=== PATIENT | male | born 1980 | race African-American/Black ===

== ENCOUNTER 2017-04-29 01:48 | Emergency (ER) | payer MEDICAID, OTHER ==
[2017-04-29 01:54] VITALS: BP 124/64
== END 2017-04-29 02:35 | disposition left against medical advice (07) ==
LOC: ED 01:48
DX: R07.9 Chest pain, unspecified (principal); Z53.21 Procedure and treatment not carried out due to patient leaving prior to being seen by health care provider

== ENCOUNTER 2018-04-22 11:40 | Emergency (ER) | payer OTHER ==
[2018-04-22 11:59] VITALS: BP 134/80
--- NOTE | 2018-04-22 12:20 | UC ---
UC General HPI - HPI Summary HPI Summary: This patient is a 37-year-old male who presents to the urgent care with a chief complaint of having anal warts. The patient is be having the symptoms for the last 3 or 4 months. Patient reports that is uncomfortable itchy that he decided to come to the urgent care for further assessment. He has history of anal warts and he has tried multiple medications however he reports that the only treatment that he works for him he was cryotherapy. He denies any other symptom. - History of Current Complaint Chief Complaint: UCGU Stated Complaint: ABDOMINAL PAIN Time Seen by Provider: 04/22/18 12:06 Pain Intensity: 7 - Allergy/Home Medications Allergies/Adverse Reactions: Allergies Allergy/AdvReac Type Severity Reaction Status Date / Time No Known Allergies Allergy Verified 04/22/18 11:59 Home Medications: Home Medications NK [No Home Medications Reported] 04/22/18 [History Confirmed 04/22/18] PMH/Surg Hx/FS Hx/Imm Hx Previously Healthy: Yes - Surgical History Surgical History: None - Social History Lives: With Family Alcohol Use: Daily Substance Use Type: Cocaine Smoking Status (MU): Heavy Every Day Tobacco Smoker Review of Systems All Other Systems Reviewed And Are Negative: Yes Constitutional: Positive: Negative Skin: Positive: Other - Anal wartz Eyes: Positive: Negative ENT: Positive: Negative Respiratory: Positive: Negative Cardiovascular: Positive: Negative Gastrointestinal: Positive: Negative Genitourinary: Positive: Negative Motor: Positive: Negative Neurovascular: Positive: Negative Musculoskeletal: Positive: Negative Neurological: Positive: Negative Psychological: Positive: Negative Is Patient Immunocompromised?: No Physical Exam - Summary Physical Exam Summary: Vital signs: reviewed General: Patient is comfortable lying in stretcher with no signs of distress HEENT: within normal limits Lungs: CTA B/L CVS: S1 & S2 present. No murmurs appreciated. ABDOMEN: Soft, non-tender. No signs of distention. No rebound no guarding, and no masses palpated. Bowel sounds are normal. Rectum : positive wartz around the rectum. EXTREMITIES: FROM in all major joints, no edema, no cyanosis or clubbing. NEURO: Alert and oriented x 3. No acute neurological deficits. Speech is normal and follows commands. SKIN: Dry and warm Triage Information Reviewed: Yes Vital Signs: Initial Vital Signs Temp 98 F 04/22/18 11:56 Pulse 78 04/22/18 11:56 Resp 18 04/22/18 11:56 BP 134/80 04/22/18 11:56 Pulse Ox 100 04/22/18 11:56 Vital Signs Reviewed: Yes Course/Dx - Course Course Of Treatment: Patient with rectal reports will benefit over the dermatology consult. Especially with the patient with only try cryotherapy. Therefore the patient was given a referral for the pathology. The patient is hemodynamically stable alert and oriented 3. - Diagnoses Provider Diagnosis: Wart Discharge - Sign-Out/Discharge Documenting (check all that apply): Patient Departure All imaging exams completed and their final reports reviewed: No - Discharge Plan Condition: Stable Disposition: HOME Patient Education Materials: Cryotherapy Wart Removal (DC) Referrals: Barry Ashley MD [Medical Doctor] - No Primary Care Phys,NOPCP [Primary Care Provider] - Additional Instructions: Patient will would make the appointment with dermatology. - Billing Disposition and Condition Condition: STABLE Disposition: Home
--- NOTE | 2018-04-22 16:42 | UC ---
Course/Dx - Diagnoses Provider Diagnoses: Wart Discharge - Sign-Out/Discharge Documenting (check all that apply): Post-Discharge Follow Up All imaging exams completed and their final reports reviewed: No Studies - Discharge Plan Condition: Stable Disposition: HOME Patient Education Materials: Cryotherapy Wart Removal (DC) Referrals: Barry Ashley MD [Medical Doctor] - No Primary Care Phys,NOPCP [Primary Care Provider] - Additional Instructions: Patient will would make the appointment with dermatology. - Billing Disposition and Condition Condition: STABLE Disposition: Home
== END 2018-04-22 12:21 | disposition home or self-care (01) ==
LOC: UCEAST 11:40
DX: A63.0 Anogenital (venereal) warts (principal); F17.200 Nicotine dependence, unspecified, uncomplicated
CPT/HCPCS: 99211; G0463

== ENCOUNTER 2018-07-05 15:52 | Emergency (ER) | payer OTHER ==
[2018-07-05 16:13] VITALS: BP 110/75
--- NOTE | 2018-07-05 16:27 | UC ---
Skin Complaint HPI - HPI Summary HPI Summary: 37-year-old male Comes in with a chief complaint of right arm swelling at the antecubital. Patient noticed that the last 1 day. He is feeling slightly sick. With his vital signs he is tachycardic and he also has a fever of 101.5. Patient has been IV drug user but has been a long time he reports since he used IV drugs. - History of Current Complaint Chief Complaint: UCSkin Time Seen by Provider: 07/05/18 16:14 Stated Complaint: R ARM COMPLAINT Pain Intensity: 10 - Allergy/Home Medications Allergies/Adverse Reactions: Allergies Allergy/AdvReac Type Severity Reaction Status Date / Time No Known Allergies Allergy Verified 07/05/18 16:13 Home Medications: Home Medications Acetaminophen [Pain Reliever] 500 mg PO ONCE PRN 07/05/18 [History Confirmed 08/18] [facility] 1 tab PO ONCE PRN 07/05/18 [History] PMH/Surg Hx/FS Hx/Imm Hx Previously Healthy: Yes - Surgical History Surgical History: None - Social History Alcohol Use: Daily Substance Use Type: Cocaine Substance Use Comment - Amount & Last Used: 2 days ago, iv drug user hx Smoking Status (MU): Heavy Every Day Tobacco Smoker Amount Used/How Often: 1/2ppd Household Exposure Type: Cigarettes Review of Systems All Other Systems Reviewed And Are Negative: Yes Constitutional: Positive: Fever, Chills Skin: Positive: Other - SEE HPI Eyes: Positive: Negative ENT: Positive: Negative Respiratory: Positive: Negative Cardiovascular: Positive: Other - TACHYCARDIA. Negative: Chest Pain Gastrointestinal: Positive: Negative Motor: Positive: Negative Neurovascular: Positive: Negative Musculoskeletal: Positive: Negative Neurological: Positive: Negative Psychological: Positive: Negative Is Patient Immunocompromised?: No Physical Exam Triage Information Reviewed: Yes Appearance: Well-Nourished, Ill-Appearing - MILD, Pain Distress - MILD Vital Signs: Initial Vital Signs Temp 101.5 F 07/05/18 16:08 Pulse 115 07/05/18 16:08 Resp 18 07/05/18 16:08 BP 110/75 07/05/18 16:08 Pulse Ox 100 07/05/18 16:08 Vital Signs Reviewed: Yes Eye Exam: Normal Eyes: Positive: Conjunctiva Clear Neck: Positive: Supple Respiratory: Positive: No respiratory distress Cardiovascular: Positive: Tachycardia Musculoskeletal: Positive: Strength Intact, ROM Limited @ - RT ELBOW Neurological Exam: Normal Neurological: Positive: Alert Psychological Exam: Normal Psychological: Positive: Age Appropriate Behavior Skin: Positive: Other - Swelling in the right antecubital. It's erythematous and tender to palpation. There is streaking proximally. Normal radial pulse distally normal capillary refill distally. Course/Dx - Course Course Of Treatment: Given that the patient is tachycardic and has a fever of 101.5 most appropriate to have IV antibiotics and drainage of the abscess and potentially admission to the hospital. I discussed this with the patient and the patient's going to the hospital by ambulance. - Diagnoses Provider Diagnosis: Abscess of right arm, Sepsis Discharge - Sign-Out/Discharge Documenting (check all that apply): Patient Departure All imaging exams completed and their final reports reviewed: No Studies - Discharge Plan Condition: Stable Disposition: TRANS HIGHER LVL OF CARE FAC Referrals: [facility] [Outside] [facility] [place] [place] [facility] [Outside] - Billing Disposition and Condition Condition: STABLE Disposition: Trans Higher Lvl of Care Fac
[2018-07-05] MEDS ORDERED: NS 0.9% 1000 ML** 1,000 ML IV ONE (16:39)
== END 2018-07-05 16:47 | disposition home or self-care (01) ==
LOC: UCEAST 15:52
DX: L02.413 Cutaneous abscess of right upper limb (principal); A41.9 Sepsis, unspecified organism; R00.0 Tachycardia, unspecified; F17.210 Nicotine dependence, cigarettes, uncomplicated
CPT/HCPCS: 96361; 99213; G0463

== ENCOUNTER 2018-07-05 17:06 | Emergency (ER) | payer OTHER ==
[2018-07-05] MEDS ORDERED: Piperacillin/Tazobac ADVAN(*) 3.375 GM in NS 0.9% 100 ML* 100 ML IVPB ONE (17:17)
[2018-07-05] MEDS ORDERED: NS 0.9% 1000 ML** 1,000 ML IV ONE (17:19)
--- NOTE | 2018-07-05 17:19 | ED ---
Skin Complaint - HPI Summary HPI Summary: Pt is a 37 y/o male who presents to the ED c/o abscess. He was sent here from the for possible admission. Yesterday morning he noticed an abscess to the inside of his right elbow. Pt report redness, swelling, and pain to the area. He currently rates his pain as an 8/10 in severity, and it is made worse with bending of his arm. Pt also has a fever of 101.5 degrees F. 1 week ago he injected cocaine into his right arm, but states he has not used drugs since then. - History of Current Complaint Time Seen by Provider: 07/05/18 17:11 Stated Complaint: ABSCESS ON RT ARM PER EMS Hx Obtained From: Patient Onset/Duration: Started Days Ago - yesterday, Still Present Timing: Constant Current Severity: Severe Pain Intensity: 8 Pain Scale Used: 0-10 Numeric Skin Location: Arm - R Character: Swelling, Pain, Redness Aggravating Symptom(s): Other: - bending arm Alleviating Symptom(s): Nothing Associated Signs & Symptoms: Fever Related History: Other: - injected cocaine into R arm - Allergy/Home Medications Allergies/Adverse Reactions: Allergies Allergy/AdvReac Type Severity Reaction Status Date / Time No Known Allergies Allergy Verified 07/05/18 17:11 PMH/Surg Hx/FS Hx/Imm Hx Endocrine/Hematology History: Denies: Hx Diabetes, Hx Thyroid Disease Cardiovascular History: Denies: Hx Hypertension Respiratory History: Denies: Hx Asthma GI History: Denies: Hx Ulcer History: Denies: Hx Renal Disease Psychiatric History: Reports: Hx Depression, Hx Substance Abuse - cocaine - Surgical History Surgery Procedure, Year, and Place: None. Infectious Disease History: No Infectious Disease History: Denies: Hx Hepatitis, Hx Human Immunodeficiency Virus (HIV), Traveled Outside the [place] in Last 30 Days - Family History Known Family History: Negative: Hypertension, Diabetes - Social History Alcohol Use: Daily Hx Substance Use: Yes Substance Use Type: Reports: Cocaine Substance Use Comment - Amount & Last Used: 2 days ago, iv drug user hx Hx Tobacco Use: Yes Smoking Status (MU): Heavy Every Day Tobacco Smoker Amount Used/How Often: 1/2ppd Review of Systems Positive: Fever Positive: Other - abscess - redness, swelling, pain All Other Systems Reviewed And Are Negative: Yes Physical Exam - Summary Physical Exam Summary: VITAL SIGNS: Reviewed. GENERAL: Patient is a well-developed and nourished MALE who is lying comfortable in the stretcher. Patient is not in any acute respiratory distress. HEAD AND FACE: No signs of trauma. No ecchymosis, hematomas or skull depressions. No sinus tenderness. EYES: PERRLA, EOMI x 2, No injected conjunctiva, no nystagmus. EARS: Hearing grossly intact. Ear canals and tympanic membranes are within normal limits. MOUTH: Oropharynx within normal limits. NECK: Supple, trachea is midline, no adenopathy, no JVD, no carotid bruit, no c- spine tenderness, neck with full ROM. CHEST: Symmetric, no tenderness at palpation LUNGS: Clear to auscultation bilaterally. No wheezing or crackles. CVS: Regular rate and rhythm, S1 and S2 present, no murmurs or gallops appreciated. ABDOMEN: Soft, non-tender. No signs of distention. No rebound no guarding, and no masses palpated. Bowel sounds are normal. EXTREMITIES: FROM in all major joints, no cyanosis or clubbing. Right arm with swelling, erythema, and tenderness extending to the antecubital fossa. NV intact distally. NEURO: Alert and oriented x 3. No acute neurological deficits. Speech is normal and follows commands. SKIN: Dry and warm. Triage Information Reviewed: Yes Vital Signs On Initial Exam: Initial Vitals Temp Pulse Resp BP Pulse Ox 100.2 F 92 18 100/72 100 07/05/18 17:12 07/05/18 17:12 07/05/18 17:12 07/05/18 17:12 07/05/18 17:12 Vital Signs Reviewed: Yes Procedures - Incision and Drainage Right Arm Site: Using sterile techniques, US guided for full visualization Anesthesia: Lidocaine - 3 cc 1% Instrument(s): Scalpel - 11 blade Packing: Gauze - Iodoform, copious amount of purulent discharge Diagnostics - Vital Signs Vital Signs Temp Pulse Resp BP Pulse Ox 07/05/18 17:12 100.2 F 92 18 100/72 100 - Laboratory Result Diagrams: 07/05/18 17:52 07/05/18 17:52 Lab Statement: Any lab studies that have been ordered have been reviewed, and results considered in the medical decision making process. Re-Evaluation - Re-Evaluation First Eval Re-Evaluation Time: 18:00 Change: Improved Comment: Pt feels better after Morphine. Course/Dx - Course Assessment/Plan: Patient is a 37-year-old male who was sent from the urgent care for an abscess and cellulitis in the right upper extremity. The patient reports that about a week ago he shot cocaine in the right arm and now he developed this infection. Test results without any significant abnormality except for what was a count of 12.4, lactic acid is 2.8, CRP is 80. The abscess was I&D. The patient was given a dose of Zosyn. At this point the patient reports that he wants to go home and he will sign the AGAINST MEDICAL ADVICE. He reports that he needs to go. I extensively discussed with the patient the benefits and risk of leaving AMA. I also discussed the alternatives to leaving AMA, however, the patient still insist to leave the hospital AMA. The patient is clinically sober, free from distracting injury, appears to have intact insight and judgment and reason and in my opinion has the capacity to make decisions. Patient has full capacity and is cognitively intact. The patient presents with abscess and cellulitis, I have explained that I am concerned with cellulitis and abscess and may represent bacteremia, sepsis and . The patient verbalizes the understanding of my concerns. I have also explained the results of the labs and even though they are abnormal. The primary nurse and the charge nurse also strongly recommended that the patient should not leave AMA. Patient understands the risk of leaving AMA, which includes but is not restricted to . Patient signed the AMA form. Patient was also advised to return to ED if he changes his mind or if the symptoms worsen or other symptoms appear. Patient understands and agrees. Again , I discussed all the findings and test results with the patient. Patient was instructed to return to the emergency room immediately if any of the symptoms return or worsens. Plan of care was discussed with the patient and understands and agrees. All questions were answered at patient satisfaction. There were no further complaints or concerns. Patient signed AMA and he was discharged AMA. Patient was given a prescription for Keflex and Bactrim. - Diagnoses Provider Diagnoses: Abscess, Cellulitis Discharge - Sign-Out/Discharge Documenting (check all that apply): Patient Departure - AMA Patient Received Moderate/Deep Sedation with Procedure: No - Discharge Plan Condition: Stable Disposition: AGAINST MEDICAL ADVICE Prescriptions: Cephalexin CAP* [Keflex CAP*] 500 mg PO QID #40 cap Sulfamethox/Trimethoprim DS* [Bactrim DS 800/160 TAB*] 1 tab PO BID #20 tab Referrals: No Primary Care Phys,NOPCP [Primary Care Provider] - - Billing Disposition and Condition Condition: STABLE Disposition: Against Medical Advice - Attestation Statements Document Initiated by Scribe: Yes Documenting Scribe: Kiley Betts Provider For Whom Scribe is Documenting (Include Credential): Allan Suggs MD Scribe Attestation: Kiley Tovar, scribed for Allan Suggs MD on 07/05/18 at 1850. Scribe Documentation Reviewed: Yes Provider Attestation: The documentation as recorded by the Kiley banuelos accurately reflects the service I personally performed and the decisions made by Allan castellanos MD Status of Scribe Document: Viewed
[2018-07-05] MEDS ORDERED: Lidocaine 1%* 5 ML VIAL ONE (17:36)
[2018-07-05] MEDS ORDERED: Bacitracin OINTMENT* 0.5% 0.5 oz TUBE ONE (17:38)
[2018-07-05] MEDS ORDERED: Morphine 4 MG/ML VIAL (1 ml) 4 MG/ML VIAL ONE (17:52)
[2018-07-05] MEDS ORDERED: Morphine 4 MG/ML VIAL (1 ml) 4 MG/ML VIAL IV ONE (17:53)
[2018-07-05] MEDS ORDERED: Ondansetron INJ* 2 MG/ML VIAL ONE (17:59)
[2018-07-05 18:00] LABS: ABS Basophils 0 10^3/ul (0-0.2); ABS Eosinophils 0 10^3/ul (0-0.6); ABS Lymphocytes 1.4 10^3/ul (1.0-4.8); ABS Monocytes 0.9 10^3/ul (0-0.8); ABS Neutrophils 10.1 10^3/ul (1.5-7.7); ABS Nucleated RBC 0 10^3/ul; Eosinophil % 0.1 %; Hematocrit 43 % (36-46); Hemoglobin 14.5 g/dL (14.0-18.0); Lymphocyte % 11.3 %; Mean Corpuscular HGB Conc 34 g/dL (31-36); Mean Corpuscular Hemoglobin 31 pg (27-31); Mean Corpuscular Volume 93 fL (80-94); Mean Platelet Volume 8.9 fL (7.4-10.4); Nucleated Red Blood Cells % 0.1; Platelet Count 234 10^3/uL (150-450); Red Blood Count 4.64 10^6 /uL (4.18-5.48); Red Cell Distribution Width 13 % (10.5-15); White Blood Count 12.4 10^3/uL (3.5-10.8)
[2018-07-05] MEDS ORDERED: Ondansetron INJ* 2 MG/ML VIAL IV ONE (18:01)
[2018-07-05 18:15] LABS: Activated Partial Thrombo Time 29.5 seconds (26.0-36.3); INR 1.22 (0.77-1.02)
[2018-07-05 18:20] VITALS: BP 109/77
[2018-07-05 18:20] LABS: Albumin 3.7 g/dL (3.2-5.2); Albumin/Globulin Ratio 1.2 (1-3); BUN/Creatinine Ratio 13.3 (8-20); C Reactive Protein 80.22 mg/L (<8.01); Calcium 8.8 mg/dL (8.6-10.3); EGFR African American 126.1 (>60); EGFR Non-African American 104.3 (>60); Potassium 3.9 mmol/L (3.5-5.0); Total Bilirubin 0.5 mg/dL (0.2-1.0); Total Protein 6.7 g/dL (6.4-8.9)
--- NOTE | 2018-07-05 19:49 | PN ---
Progress Note - Progress Note Date of Service: 07/05/18 Note: Microbiology results from wound culture taken from abscess on this patient seen today by Dr. Suggs came back MRSA positive by PCR. Chart was checked and patient was given prescription for Keflex and Bactrim which will cover MRSA.
== END 2018-07-05 18:15 | disposition left against medical advice (07) ==
LOC: ED 17:06
DX: L02.413 Cutaneous abscess of right upper limb (principal); L03.113 Cellulitis of right upper limb; F17.210 Nicotine dependence, cigarettes, uncomplicated; F14.90 Cocaine use, unspecified, uncomplicated
CPT/HCPCS: 10060; 36415; 80053; 83605; 84484; 85025; 85610; 85730; 86140; 87040; 87070; 87077; 87186; 87205; 87640; 87641; 96361; 96365; 96375; 96376; 99283; A9270-GY; J2270; J2405; J2543

== ENCOUNTER 2018-08-13 01:05 | Emergency (ER) | payer OTHER ==
[2018-08-13] MEDS ORDERED: Clindamycin 600 MG/D5W BAG(*) 600 MG/50 ML BAG IV ONE (01:43)
[2018-08-13] MEDS ORDERED: NS 0.9% 1000 ML** 1,000 ML IV ONE (01:44)
[2018-08-13] MEDS ORDERED: Ketorolac INJ* 30 MG/ML 1 ML VIAL IV PUSH ONE (01:44)
[2018-08-13 02:02] LABS: ABS Lymphocytes 1.9 10^3/ul (1.0-4.8); ABS Monocytes 1.3 10^3/ul (0-0.8); ABS Neutrophils 13.3 10^3/ul (1.5-7.7); Eosinophil % 0.1 %; Hematocrit 46 % (42-52); Hemoglobin 15.3 g/dL (14.0-18.0); Lymphocyte % 11.3 %; Mean Corpuscular HGB Conc 34 g/dL (31-36); Mean Corpuscular Hemoglobin 31 pg (27-31); Mean Corpuscular Volume 93 fL (80-94); Mean Platelet Volume 9.3 fL (7.4-10.4); Platelet Count 188 10^3/uL (150-450); Red Blood Count 4.89 10^6 /uL (4.18-5.48); Red Cell Distribution Width 14 % (10.5-15); White Blood Count 16.5 10^3/uL (3.5-10.8)
[2018-08-13 02:16] LABS: Albumin 4.1 g/dL (3.2-5.2); Albumin/Globulin Ratio 1.4 (1-3); BUN/Creatinine Ratio 7.2 (8-20); EGFR African American 126.1 (>60); EGFR Non-African American 104.3 (>60); Globulin 2.9 g/dL (2-4); Potassium 3.9 mmol/L (3.5-5.0); Total Bilirubin 2.5 mg/dL (0.2-1.0)
--- NOTE | 2018-08-13 02:29 | ED ---
Upper Extremity Pain - HPI Summary HPI Summary: Pt is a 37 y/o male who presents to the ED c/o RUE pain. A few days ago he began to have an infection in the inside of his right elbow. Pt c/o redness and pain to the area, rated a 10/10 in severity. He also now has a fever. He injects cocaine, and missed the needle. As per medical records he was here on 07/05/18 for an abscess in the same area due to injecting cocaine. Pt denies any opiate use. - History of Current Complaint Chief Complaint: EDExtremityUpper Stated Complaint: RT ARM INFECTION NEEDS TO BE DRAINED PER PT Time Seen by Provider: 08/13/18 02:08 Hx Obtained From: Patient Mechanism Of Injury: Other - missed needle injection Onset/Duration: Started Days Ago - 2-3, Still Present Timing: Constant Severity Currently: Severe - 10/10 Pain Location: Elbow - inner right Associated Signs & Symptoms: Positive: Redness, Fever Related History: Similar Episode/Dx As - 07/05/18 - Allergies/Home Medications Allergies/Adverse Reactions: Allergies Allergy/AdvReac Type Severity Reaction Status Date / Time No Known Allergies Allergy Verified 08/13/18 01:19 Home Medications: Home Medications NK [No Home Medications Reported] 08/13/18 [History Confirmed 08/13/18] PMH/Surg Hx/FS Hx/Imm Hx Endocrine/Hematology History: Denies: Hx Diabetes, Hx Thyroid Disease Cardiovascular History: Denies: Hx Hypertension Respiratory History: Denies: Hx Asthma GI History: Denies: Hx Ulcer History: Denies: Hx Renal Disease Psychiatric History: Reports: Hx Depression, Hx Substance Abuse - cocaine - Surgical History Surgery Procedure, Year, and Place: None. Infectious Disease History: No Infectious Disease History: Denies: Hx Hepatitis, Hx Human Immunodeficiency Virus (HIV), Traveled Outside the [place] in Last 30 Days - Family History Known Family History: Negative: Hypertension, Diabetes - Social History Alcohol Use: Daily Hx Substance Use: Yes Substance Use Type: Reports: Cocaine Substance Use Comment - Amount & Last Used: 2 days ago, iv drug user hx Hx Tobacco Use: Yes Smoking Status (MU): Heavy Every Day Tobacco Smoker Amount Used/How Often: 1/2ppd Review of Systems Positive: Fever Positive: Myalgia - RUE pain Positive: Other - RUE redness All Other Systems Reviewed And Are Negative: Yes Physical Exam - Summary Physical Exam Summary: Appearance: well appearing, no pain distress Skin: hot, dry, reflects adequate perfusion, erythema and induration from right mid-bicep through the distal forearm, large fluctuant area in right AC area Head/face: normal Eyes: EOMI, DAKOTAH ENT: mucous membranes moist Neck: supple, non-tender Respiratory: CTA, breath sounds present Cardiovascular: RRR, pulses symmetrical Abdomen: non-tender, soft Bowel Sounds: present Musculoskeletal: normal, strength/ROM intact Neuro: normal, sensory motor intact, A&Ox3 Triage Information Reviewed: Yes Vital Signs On Initial Exam: Initial Vitals Temp Pulse Resp BP Pulse Ox 101.9 F 102 18 130/79 98 08/13/18 01:16 08/13/18 01:16 08/13/18 01:16 08/13/18 01:16 08/13/18 01:16 Vital Signs Reviewed: Yes Procedures - Incision and Drainage Right Elbow Site: right AC area - 5 cm in diameter Anesthesia: Lidocaine - 5 cc 1% Instrument(s): Scalpel - 11 blade, large amount of puss Packing: Gauze Diagnostics - Vital Signs Vital Signs Temp Pulse Resp BP Pulse Ox 08/13/18 01:16 101.9 F 102 18 130/79 98 - Laboratory Lab Results: Lab Results 08/13/18 08/13/18 08/13/18 Range/Units 01:47 01:47 01:47 WBC 16.5 H (3.5-10.8) 10^3/uL RBC 4.89 (4.18-5.48) 10^6 /uL Hgb 15.3 (14.0-18.0) g/dL Hct 46 (42-52) % MCV 93 (80-94) fL MCH 31 (27-31) pg MCHC 34 (31-36) g/dL RDW 14 (10.5-15) % Plt Count 188 (150-450) 10^3/uL MPV 9.3 (7.4-10.4) fL Neut % (Auto) 80.7 % Lymph % (Auto) 11.3 % [place] % (Auto) 7.7 % Eos % (Auto) 0.1 % Baso % (Auto) 0.2 % Absolute Neuts (auto) 13.3 H (1.5-7.7) 10^3/ul Absolute Lymphs (auto) 1.9 (1.0-4.8) 10^3/ul Absolute Monos (auto) 1.3 H (0-0.8) 10^3/ul Absolute Eos (auto) 0.0 (0-0.6) 10^3/ul Absolute Basos (auto) 0.0 (0-0.2) 10^3/ul Absolute Nucleated RBC 0.0 10^3/ul Nucleated RBC % 0.0 Sodium 130 L (135-145) mmol/L Potassium 3.9 (3.5-5.0) mmol/L Chloride 95 L (101-111) mmol/L Carbon Dioxide 28 (22-32) mmol/L Anion Gap 7 (2-11) mmol/L BUN 6 (6-24) mg/dL Creatinine 0.83 (0.67-1.17) mg/dL Est GFR ( Amer) 126.1 (>60) Est GFR (Non-Af Amer) 104.3 (>60) BUN/Creatinine Ratio 7.2 L (8-20) Glucose 124 H (70-100) mg/dL Lactic Acid 1.0 (0.5-2.0) mmol/L Calcium 9.0 (8.6-10.3) mg/dL Total Bilirubin 2.50 H (0.2-1.0) mg/dL AST 201 H (13-39) U/L ALT Pending Alkaline Phosphatase 152 H (34-104) U/L Total Protein 7.0 (6.4-8.9) g/dL Albumin 4.1 (3.2-5.2) g/dL Globulin 2.9 (2-4) g/dL Albumin/Globulin Ratio 1.4 (1-3) Result Diagrams: 08/13/18 01:47 08/13/18 01:47 Lab Statement: Any lab studies that have been ordered have been reviewed, and results considered in the medical decision making process. - CT Upper Extremity CT CT Interpretation Completed By: Radiologist Summary of CT Findings: Limited study due to beam hardening artifact. 1. A soft tissue defect in the anterior aspect of the elbow with underlying small subcutaneous hematoma measuring 0.9 cm, best seen on axial image 146 series 2. 2. Diffuse soft tissue swelling with subcutaneous infiltration in the lower arm and entire forearm, particular in the anterior aspect, most consistent with cellulitis. 3. Apparent focal fluid collection within distal biceps muscle, axial image 129 series 2, which may represent hematoma versus abscess. ED physician reviewed radiology report. 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 He states that he will return to the ED JERSON. Course/Dx - Course Course Of Treatment: Patient with a history of IV drug abuse presents with axillary abscess after missing wall injecting drug. He has fever and sepsis criteria. He is given IV fluids, IV antibiotics and an incision and drainage was performed on the area. A CT scan was up pain following that to evaluate for further abscess. This likely shows residual hematoma. The cellulitis was outlined and it was arranged for him to be admitted to the hospital. The patient has children at home being watched by his nephew and needs to leave AGAINST MEDICAL ADVICE to find a place for them. He swears he will return within the next one hour and has refused outpatient antibiotics given that he plans on returning. The hospitalist had been contacted and was about to evaluate the patient when he decided to leave against medical advise. Of note, his LFTs are now elevated, worrisome for acute hepatitis such as hepatitis C given his IV drug abuse. - Diagnoses Differential Diagnosis/HQI/PQRI: Positive: Other - MRSA, retained foreign body, abscess, cellulitis, hepatitis, HIV Provider Diagnoses: IV drug abuse, Abscess of right upper extremity, Acute hepatitis, Sepsis - Physician Notifications Discussed Care of Patient With: Elgin Conrad Time Discussed With Above Provider: 03:19 Instructed by Provider To: Admit As Inpatient - Critical Care Time Critical Care Time: 30-74 min - Critical care time is exclusive of separately billable procedures Discharge - Sign-Out/Discharge Documenting (check all that apply): Patient Departure - AMA Patient Received Moderate/Deep Sedation with Procedure: No - Discharge Plan Condition: Fair Disposition: AGAINST MEDICAL ADVICE Patient Education Materials: Hepatitis C (ED), Abscess (ED) Referrals: No Primary Care Phys,NOPCP [Primary Care Provider] - Additional Instructions: Return immediately to the ER for IV therapy as discussed. - Billing Disposition and Condition Condition: FAIR Disposition: Against Medical Advice - Attestation Statements Document Initiated by Scribe: Yes Documenting Scribe: Kiley Betts Provider For Whom Scribe is Documenting (Include Credential): Zia Johnson MD Scribe Attestation: IKiley, scribed for Zia Johnson MD on 08/13/18 at 0625. Scribe Documentation Reviewed: Yes Provider Attestation: The documentation as recorded by the rubénibeKiley accurately reflects the service I personally performed and the decisions made by me, Zia Johnson MD Status of Scribe Document: Viewed
[2018-08-13] MEDS ORDERED: Morphine 4 MG/ML VIAL (1 ml) 4 MG/ML VIAL IV ONE (02:32)
[2018-08-13 02:37] VITALS: BP 133/73
[2018-08-13] MEDS ORDERED: Iohexol 300* (CONTRAST) 10 ML SDV IV ONE (02:51)
[2018-08-13] MEDS ORDERED: Clindamycin 600 MG IVPREMIX(* 600 MG/50 ML SDV IV ONE (03:00)
[2018-08-13] MEDS ORDERED: Vancomycin(*) 1,750 MG in NS 0.9% 250 ML* 250 ML IVPB ONE (03:22)
[2018-08-13 03:27] LABS: INR 1.47 (0.82-1.09)
[2018-08-13 03:36] LABS: C Reactive Protein 118.72 mg/L (<8.01)
[2018-08-13 11:14] LABS: Hepatitis C Antibody Nonreactive (Nonreactive)
== END 2018-08-13 03:40 | disposition left against medical advice (07) ==
LOC: ED 01:05
DX: L02.413 Cutaneous abscess of right upper limb (principal); F19.10 Other psychoactive substance abuse, uncomplicated; B17.9 Acute viral hepatitis, unspecified; A41.9 Sepsis, unspecified organism; F17.210 Nicotine dependence, cigarettes, uncomplicated
CPT/HCPCS: 10060; 36415; 80053; 83605; 85025; 85610; 86140; 86803; 87040; 87070; 87077; 87186; 87205; 87640; 87641; 96361; 96365; 96375; 99283; J1885; J2270; J3370; Q9967

== ENCOUNTER 2018-08-13 06:29 | Inpatient (IN) | payer OTHER ==
[2018-08-13] MEDS ORDERED: NS 0.9% 1000 ML** 1,000 ML IV ONE (06:45)
[2018-08-13] MEDS ORDERED: Acetaminophen TAB* 325 MG PO ONE (06:46)
--- NOTE | 2018-08-13 06:48 | PN ---
Progress Note - Progress Note Date of Service: 08/13/18 Note: I supervised the care of the physician assistant offset press operator and I performed a history and physical on this patient. History: The patient has returned for inpatient IV antibiotics for right upper extremity abscess associated with IV drug use. He is also known to have acute hepatitis not currently worked up. Physical exam: Patient remains tachycardic and temperature is down somewhat. He is in no distress. His packing is in place in the right antecubital area and the cellulitic area remains within the bounds of the marked area that I did earlier. Plan: Laboratories for hepatitis, admit to the hospitalist for abscess.
[2018-08-13 08:20] LABS: Rapid HIV 1 Nonreactive (Nonreactive)
[2018-08-13] MEDS ORDERED: Acetaminophen TAB* 325 MG PO PRN (08:29)
[2018-08-13] MEDS ORDERED: Ibuprofen TAB* 600 MG PO PRN (08:29)
[2018-08-13] MEDS ORDERED: PROCHLORPERAZINE INJ 5 MG/ML 2 ML VIAL IV PRN (08:29)
[2018-08-13] MEDS ORDERED: Vancomycin(*) 1,500 MG in NS 0.9% 250 ML* 250 ML IVPB ONE ×2 (08:30→08:31)
[2018-08-13] MEDS ORDERED: cloNIDine TAB* 0.1 MG PO PRN (08:34)
[2018-08-13] MEDS ORDERED: Vancomycin per Pharmacy* NOTE FOLLOW UP SCH (09:00)
--- NOTE | 2018-08-13 09:27 | ED ---
Skin Complaint - HPI Summary HPI Summary: Patient returns with R forearm abscess. 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 He returns now and is willing to stay and be admitted. At this point he requires IV antibiotics for right upper extremity abscess associated with IV drug use. He currently also has active hepatitis, however this remains not worked up at this point. Packing is in place to the right antecubital area and the cellulitis remains within the bounds of the marked area that Dr. Johnson performed earlier prior to leaving AMA. He continues to deny any fevers, sweats, chills. He states he feels otherwise well. He has had abscesses in these areas in the past. - History of Current Complaint Chief Complaint: EDRashSkinAbscess Time Seen by Provider: 08/13/18 06:31 Stated Complaint: "R ARM INFECTION" PER PT Hx Obtained From: Patient Onset/Duration: Started Hours Ago, Started Days Ago Skin Exposure Onset/Duration: Hours Ago, Days Ago Timing: Constant Onset Severity: Moderate Current Severity: Moderate Pain Intensity: 0 Pain Scale Used: 0-10 Numeric Skin Location: Discrete - right antecubital packing in place/abscess Aggravating Symptom(s): Nothing Alleviating Symptom(s): Nothing Associated Signs & Symptoms: Negative - Allergy/Home Medications Allergies/Adverse Reactions: Allergies Allergy/AdvReac Type Severity Reaction Status Date / Time No Known Allergies Allergy Verified 08/13/18 01:19 PMH/Surg Hx/FS Hx/Imm Hx Previously Healthy: Yes Endocrine/Hematology History: Denies: Hx Diabetes, Hx Thyroid Disease Cardiovascular History: Denies: Hx Hypertension Respiratory History: Denies: Hx Asthma GI History: Denies: Hx Ulcer History: Denies: Hx Renal Disease Psychiatric History: Reports: Hx Depression, Hx Substance Abuse - cocaine - Surgical History Surgery Procedure, Year, and Place: None. - Immunization History Date of Tetanus Vaccine: unk Date of Influenza Vaccine: fall 2017 Hx Pertussis Vaccination: No Immunizations Up to Date: Yes Infectious Disease History: No Infectious Disease History: Denies: Hx Hepatitis, Hx Human Immunodeficiency Virus (HIV), Traveled Outside the [place] in Last 30 Days - Family History Known Family History: Negative: Hypertension, Diabetes - Social History Occupation: Unemployed Lives: Alone Alcohol Use: Daily Hx Substance Use: Yes Substance Use Type: Reports: Cocaine, Heroin Substance Use Comment - Amount & Last Used: 2 days ago, iv drug user hx Hx Tobacco Use: Yes Smoking Status (MU): Heavy Every Day Tobacco Smoker Amount Used/How Often: 1/2ppd Review of Systems Constitutional: Negative Negative: Fever, Fatigue, Skin Diaphoresis Negative: Palpitations, Chest Pain Negative: Shortness Of Breath, Cough Negative: Arthralgia, Myalgia Positive: Other - right antecubital packing in place/abscess Neurological: Negative All Other Systems Reviewed And Are Negative: Yes Physical Exam Triage Information Reviewed: Yes Vital Signs On Initial Exam: Initial Vitals Temp Pulse Resp BP Pulse Ox 100.0 F 114 16 110/80 93 08/13/18 06:31 08/13/18 06:31 08/13/18 06:31 08/13/18 06:31 08/13/18 06:31 Vital Signs Reviewed: Yes Appearance: Positive: Well-Appearing, Well-Nourished Skin: Positive: Skin Color Reflects Adequate Perfusion, Other - right antecubital packing in place/abscess with erythematous area -marked Neck: Positive: Supple, No Lymphadenopathy Respiratory/Lung Sounds: Positive: Clear to Auscultation, Breath Sounds Present Cardiovascular: Positive: RRR, Pulses are Symmetrical in both Upper and Lower Extremities Musculoskeletal: Positive: Strength/ROM Intact, Pain @ - right antecubital fossa Neurological: Positive: Speech Normal Psychiatric: Positive: Affect/Mood Appropriate AVPU Assessment: Alert Diagnostics - Vital Signs Vital Signs Temp Pulse Resp BP Pulse Ox 08/13/18 07:16 114 97 08/13/18 07:15 106 105/72 95 08/13/18 06:31 100.0 F 114 16 110/80 93 - Laboratory Lab Results: Lab Results 08/13/18 Range/Units 07:17 HIV 1&2 Antibody Rapid Nonreactive (Nonreactive) Lab Statement: Any lab studies that have been ordered have been reviewed, and results considered in the medical decision making process. Course/Dx - Course Course Of Treatment: During course treatment, the patient is evaluated for right forearm abscess. This was packed earlier this morning. He returns now to be admitted for IV antibiotics. He remained afebrile, and denies any sweats or chills. Discussed case with Dr. Snider, hospitalist, who agrees to admit patient for further evaluation and workup. - Differential Diagnoses - Skin Complaint Differential Diagnoses: Abscess - Diagnoses Provider Diagnoses: Abscess - Physician Notifications Discussed Care Of Patient With: Jess Snider Instructed by Provider To: Admit As Inpatient Discharge - Sign-Out/Discharge Documenting (check all that apply): Patient Departure Patient Received Moderate/Deep Sedation with Procedure: No - Discharge Plan Condition: Fair Disposition: ADMITTED TO [facility] Referrals: No Primary Care Phys,NOPCP [Primary Care Provider] - - Billing Disposition and Condition Condition: FAIR Disposition: Admitted to [facility]
[2018-08-13 10:48] LABS: Hepatitis B Surface Antigen Nonreactive (Nonreactive)
--- NOTE | 2018-08-13 12:04 | HP ---
CC: Dr. Harman* HISTORY AND PHYSICAL: DATE OF ADMISSION: 08/13/18 TIME OF EVALUATION: 8 a.m. CONSULTING ORTHOPEDIST: Dr. Harman. CHIEF COMPLAINT: "My arm hurts." HISTORY OF PRESENT ILLNESS: Mr. Kitchen is a 37-year-old male with a past medical history of drug abuse, who presents to the emergency room with complaints of right arm pain. He was seen in the emergency room on 07/05/18 with complaints of right arm pain around the antecubital fossa with redness, swelling, pain, and an abscess to the area. He had injected cocaine into the area. He was diagnosed with sepsis in right arm abscess and at that time, he had white cell count of 12.4, lactic acid of 2.8, CRP of 80. He left the emergency room against medical advice. He received a prescription for Keflex and Bactrim that he is not sure if he took it or not. He had an intake appointment at [facility] on 08/04/18, but he did not present to the appointment. He states that the arm never got better and he came to the emergency room last night and was found to have an abscess that was I and D'd by Dr. Bacon in the emergency room. He once again left against medical advice. At that time, his reasoning was that he needed to arrange care for his stepchildren and he did return to the emergency room earlier this morning and he is agreeable with admission He states that he has been awake for the past 4 days and that he usually just snorts cocaine, injecting is something unusual for him. He states that he did snort cocaine before returning to the hospital. He thinks he had fevers at home, but has not measured it. He complains of right arm pain, progressive and developed edema, progressive pain and erythema. He denies nausea, vomiting, diarrhea, chest pain, palpitations, shortness of breath or other complaints. PAST MEDICAL HISTORY: 1. Tobacco abuse. 2. Drug abuse including IV cocaine use. MEDICATION LIST: None. ALLERGIES: No known drug allergy. FAMILY HISTORY: Reviewing the patient, he states that there are no significant disease in family members. SOCIAL HISTORY: The patient states that he drinks 3 to 4 times a week, 6 packs. He states he uses cocaine, usually he snorts, but has injected in the past and he also uses heroin. Last heroin use was a couple of days ago and last cocaine use was today after he left the hospital against medical advice. He also is a smoker, half a pack a day. Surrogate decision maker is his mother , Becky Kitchen, phone number is [phone]. REVIEW OF SYSTEMS: A 14-point review of systems was performed and all the pertinent negatives and positive findings are in the HPI. PHYSICAL EXAMINATION GENERAL: The patient is a young gentleman sitting up in the ED stretcher, in no acute distress. VITAL SIGNS: Temperature is 100.0, heart rate is 114, oxygen saturation is 97% on room air, respiratory rate is 16, blood pressure 105/72. HEENT: Pupils are equal. Moist mucous membranes. CHEST: Breath sounds bilaterally with no added sounds. CVS: Normal S1 and S2. Regular rate and rhythm. ABDOMEN: Soft, bowel sounds are present. EXTREMITIES: The patient has edema with erythema of the right antecubital fossa extending up to mid arm and down to mid forearm with some mild swelling on his right hand. This has been I and D'd in the emergency room and he has packing in place, but the lesions are still draining sanguinopurulent drainage. He has good pulses. Sensation is intact. Normal capillary refill. He has full range of motion of his right hand. NEUROLOGIC: He is alert and oriented x3. Able to move all 4 extremities. LABORATORY AND IMAGING DATA: The patient had a CBC that showed a WBC of 16.5, hemoglobin of 15.3, hematocrit of 46, platelets of 188 with 80% neutrophils. INR is 1.4. Chemistry showed a sodium of 130, potassium of 3.9, chloride was 95 , bicarb 29, BUN of 6, creatinine of 0.83, glucose of 124, lactic acid is 1, calcium of 9. LFTs showed a total bilirubin of 205. AST of 201, ALT of 1012, alk phos 152. CRP 118. HIV serology was negative. PCR of the drainage of his right arm was positive for MRSA. CT of the upper extremity with contrast showed a soft tissue defect in the anterior aspect of the elbow with underlying small subcutaneous hematoma measuring 0.9 cm. Diffuse soft tissue swelling with subcutaneous infiltration in the lower arm and higher forearm, particularly in the anterior aspect, most consistent with cellulitis. Apparent focal fluid collection within the distal biceps muscle, which may represent hematoma versus abscess. ASSESSMENT AND PLAN: Mr. Kitchen is a 37-year-old male with a past medical history of tobacco abuse, IV drug abuse, who presents to the emergency room with right arm abscess, status post I and D. 1. Sepsis. The patient meets sepsis criteria with tachycardia and leukocytosis. Granted, the patient did use cocaine before coming to the emergency room, so his tachycardia is probably driven by his cocaine use. His blood pressure is stable. His lactic acid is normal. His source of infection is his right arm abscess. 2. Right arm methicillin-resistant Staphylococcus aureus abscess. The PCR of his right arm drainage is already positive for methicillin-resistant Staphylococcus aureus as well as his culture from his prior drainage in July. He will be admitted for further management. He will be treated with vancomycin and an Orthopedic consult was requested with Dr. Harman as I believe he will need further drainage. He will receive pain management with acetaminophen, ibuprofen and Toradol. 3. Acute hepatitis. The patient has an ALT of 1000 and this is new. In July , his LFTs were normal. The patient states that he usually just snorts cocaine and using something IV is not his usual. I suspect he probably contracted hepatitis C. Serologies were sent and we will follow the results. 4. Drug abuse. The patient will receive clonidine as needed for cravings, and we planned to schedule an appointment for followup at [facility] on discharge. He also have a social professionals consult. 5. DVT prophylaxis. The patient has a score of 1 on DVT Prophylaxis Assessment Guide. He will have SCDs while in bed. 6. Code status is full. TIME SPENT: Approximately 60 minutes was spent with patient interview, medical records review, physical examination to complete this admission, more than half of this time was spent [id number] with the patient in coordination of care. [id number]/[facility] #: [id number] LAINE
[2018-08-13] MEDS: Ketorolac INJ* 30 MG/ML 1 ML VIAL IV PUSH PRN (12:25)
--- NOTE | 2018-08-13 13:51 | CONS ---
CONSULTATION REPORT: DATE OF CONSULT: 08/13/18 CHIEF COMPLAINT: Draining abscess of the right arm. HISTORY OF PRESENT ILLNESS: The patient is a 37-year-old male, who presented to the emergency room with a complaint of right upper extremity pain with associated redness and drainage of the area. He initially present earlier this morning, abscess was packed and he left AMA. While home, admits to drinking alcohol and snorting cocaine. He returned and is agreeable to be admitted. He confirms pain of the right upper extremity with redness and swelling. He denies any fever or chills. One month ago he was also seen for an abscess of this area, given antibiotics which he did not take. Patient reports a history of IV cocaine use, to me stating he has not inject in one year though giving a more recent history to other medical providers. He had a CT scan of the right arm this morning, which showed a soft tissue defect at the anterior elbow, as well as a fluid collection of 0.9 cm in this area along with diffuse soft tissue swelling of the entire forearm. He has not had surgery in the past, denies medical issues aside from ADHD. PAST MEDICAL HISTORY: ADHD and IV drug use. Newly diagnosed hepatitis, untreated. PAST SURGICAL HISTORY: None. ALLERGIES: No known drug allergies. FAMILY HISTORY: No adverse effects from anesthesia. SOCIAL HISTORY: The patient drinks alcohol. He snorts cocaine and rarely injects cocaine. To me, reports he is no longer using IV drugs, though this morning he did report that he has recently inject cocaine. REVIEW OF SYSTEMS: General: Denies any feelings of fever or chills. HEENT: Denies any head trauma or headache. Cardio: No irregular beats. No chest pain. Respiratory: No shortness of breath, no cough. Abdomen: No abdominal pain, nausea, vomiting, or diarrhea. : No dysuria. Musculoskeletal: Positive for right upper extremity swelling and pain. Neuro: Sensation is intact to all extremities. No numbness, no paresthesias. Skin: The patient reports redness and draining lesion at his right antecubital fossa. PHYSICAL EXAM: General: No acute distress, lying in the emergency room, appears somewhat sedated, but oriented, keeping an appropriate conversation. Temperature 100.0, pulse rate 87, oxygen saturation 100 on room air, blood pressure 118/66. HEENT: Normocephalic and atraumatic. Extraocular movements are intact. The patient appears to have a small degree of scleral icterus. Cardiovascular: Bilateral radial pulses 2+. Respiratory: Rate and effort of breathing within normal limits. Abdomen: Nondistended, nontender. Musculoskeletal: Right upper extremity, right antecubital fossa is with a pea- sized open lesion with purulent drainage. There is surrounding erythema that spans the entire forearm and up into mid biceps. He is indurated throughout the forearm and to mid biceps, though it remains compressible. This area is nontender. There is no fluctuance. Capillary refill is less than 2 seconds distally. Sensation intact to light touch distally. The patient has good range of motion at the elbow, wrist, and digits without pain. Contralateral upper extremity, the patient does have old scarred over track kelly in the antecubital fossa, though no sign of abscess. Neuro: Sensation intact to light touch throughout bilateral upper and lower extremities. DIAGNOSTIC STUDIES/LAB DATA: White blood cell count 16.5, INR 1.47, sodium 130 , potassium 3.9, creatinine 0.83, bili 2.5, AST 201, ALT 1012, alk phos 152, CRP is 118.72. Upper extremity CT scan: Anterior aspect of the elbow with fluid collection 0.9 cm, diffuse soft tissue swelling into the lower arm at the anterior aspect and fluid collection of the distal biceps also noted. ASSESSMENT: Cellulitis and abscess of the right antecubital fossa associated with IV drug abuse. PLAN: The patient will be NPO. CBC, BMP, INR already complete. He should be doing warm soapy water soaks [address] Harman will evaluate this patient in order to determine if he needs to be brought to the OR tonight or we continue nonoperative treatment and see if he gets any better. Addendum: I again saw patient with Dr Harman at 1800. Purulence is expressible. Patient may eat a regular diet and we will continue IV antibiotics, warm soapy soaks TID and I will evaluate daily. PETRA ASHER, YOUNG [id number]/[facility] #: [id number] [facility]
--- NOTE | 2018-08-13 14:40 | PN ---
Progress Note - Progress Note Date of Service: 08/13/18 Note: Packing was dislodged by patient Was asked by RN to repack right antecubital abscess Packed with 8 cm 1/4 iodoform dressing Loose gauze wrapped and tegaderm applied Small amount of drainage and bleeding from the area prior to packing patient had minimal pain with procedure
[2018-08-13 14:47] LABS: Hepatitis C Antibody Low Reactive (Nonreactive)
[2018-08-13] MEDS: NS 0.9% 1000 ML** 1,000 ML IV SCH (14:47)
--- NOTE | 2018-08-13 16:37 | CONS ---
CONSULTATION REPORT: DATE OF CONSULTATION: 08/13/18 REQUESTING PHYSICIAN: Dr. Mcmullen. CONSULTING SERVICE: Infectious Disease. REASON FOR CONSULT: Right arm abscess. IMPRESSION: 1. Right arm abscess due to methicillin-resistant Staphylococcus aureus, superficial component was drained in the ER yesterday growing staph aureus, PCR positive for MRSA. He has diffuse edema and erythema. I suspect there is deeper component to the abscess. He did have a CT yesterday, which showed a collection in the biceps muscle. 2. Acute hepatitis, asymptomatic. ALT of 1000, bilirubin 2.5, hepatitis C antibody was reactive. Probably acute hepatitis C as suggested by Dr Mcmullen. His HIV test was negative. Hepatitis B surface antigen nonreactive. 3. Injection drug use, in brief remission. RECOMMENDATIONS: 1. Continue vancomycin, goal trough 15 to 20. He is going to be seen by Orthopedics for possibility of incision and debridement. 2. He has a hepatitis C viral load pending, we can follow that as an outpatient. Follow LFTs here. HISTORY OF PRESENT ILLNESS: A 37-year-old man who has injected cocaine in his right antecubital fossa, couple of weeks ago, he has been seen in the ER couple of times and at urgent care; however, he was prescribed Bactrim as an outpatient , he had taken off and on. Seen in the ER yesterday with worsening pain and swelling on the elbow and antecubital fossa. He has been having fevers, chills , and sweats at home. He had an I and D done in the ER with some purulent material removed. The specimen is growing MRSA sensitive to Bactrim, vancomycin , and doxycycline. He left AMA yesterday. He came back this morning because of worsening pain and swelling. He was admitted and started on vancomycin. He is going to be seen by Orthopedics. He has pain in his proximal forearm and has decreased range of motion of the elbow, he thinks mostly due to swelling. He has no abdominal pain, nausea, vomiting, or anorexia, in fact he is hungry. PAST MEDICAL HISTORY: 1. Tobacco abuse. 2. IV cocaine abuse. MEDICATIONS: 1. Tylenol. 2. Clonidine. 3. Ibuprofen. 4. Prochlorperazine. 5. Vancomycin 1250 mg every 8 hours. ALLERGIES: No known drug allergies. FAMILY HISTORY: No recurrent infections or TB. SOCIAL HISTORY: Lives in [place], had used cocaine injection recently. REVIEW OF SYSTEMS: All negative except as noted above to a 14-point review. PHYSICAL EXAM: Vital Signs: Temperature 37, heart rate 100, respiratory rate 18, blood pressure 100/56, oxygen saturation 98% on room air. In general, he is awake, not in distress. Neurologic: He is oriented x3. Follows commands. Moves all his extremities. HEENT: There is no conjunctival hemorrhage. Oropharynx without lesions. Neck: Neck is supple without mass. Heart has regular rate and rhythm without murmurs, rubs, or gallops. Lungs are clear to auscultation bilaterally. Abdomen: Soft, nontender, and nondistended. There are bowel sounds present. Skin: There is no rash or splinter hemorrhage. Musculoskeletal: There is no spine tenderness to palpation. Right forearm, elbow, and upper arm have diffuse warmth, edema and erythema. No crepitus or fluctuance. DIAGNOSTIC STUDIES/LAB DATA: From 08/13/18, white blood cell count 16, hemoglobin 15, platelets 188,000. Glucose 124, ALT 1000, creatinine 0.8, CRP 118. Please see impression and recommendations outlined above, which I have discussed with Dr. Mcmullen. Thanks for asking me to see Mr. Kitchen in consultation. [id number]/[facility] #: [id number] [facility] HEALTH[facility]
[2018-08-13] MEDS: Vancomycin(*) 1,250 MG in NS 0.9% 250 ML* 250 ML IVPB SCH (17:30)
[2018-08-14] MEDS: Vancomycin(*) 1,250 MG in NS 0.9% 250 ML* 250 ML IVPB SCH ×3 (02:44→17:47)
[2018-08-14] MEDS: NS 0.9% 1000 ML** 1,000 ML IV SCH (02:45)
[2018-08-14] MEDS: Ketorolac INJ* 30 MG/ML 1 ML VIAL IV PUSH PRN ×2 (04:37→13:02)
[2018-08-14 06:59] LABS: ABS Lymphocytes 1.8 10^3/ul (1.0-4.8); ABS Monocytes 1.5 10^3/ul (0-0.8); ABS Neutrophils 12.2 10^3/ul (1.5-7.7); Eosinophil % 0.2 %; Hematocrit 40 % (42-52); Hemoglobin 13.2 g/dL (14.0-18.0); Lymphocyte % 11.3 %; Mean Corpuscular HGB Conc 34 g/dL (31-36); Mean Corpuscular Hemoglobin 31 pg (27-31); Mean Corpuscular Volume 94 fL (80-94); Mean Platelet Volume 9.3 fL (7.4-10.4); Platelet Count 161 10^3/uL (150-450); Red Blood Count 4.22 10^6 /uL (4.18-5.48); Red Cell Distribution Width 15 % (10.5-15); White Blood Count 15.6 10^3/uL (3.5-10.8)
[2018-08-14 07:18] LABS: BUN/Creatinine Ratio 9.9 (8-20); Calcium 8.4 mg/dL (8.6-10.3); EGFR African American 151.1 (>60); EGFR Non-African American 124.8 (>60); Potassium 4.1 mmol/L (3.5-5.0)
[2018-08-14 09:16] LABS: C Reactive Protein 172.57 mg/L (<8.01)
--- NOTE | 2018-08-14 10:03 | PN ---
Progress Note - Progress Note Date of Service: 08/14/18 SOAP: Subjective: CC: abscess HPI: 37 yo man with right arm abscess; had I&D in ER, draining purulent fluid, pain and swelling about the same. Fever overnight. Hungry, no diarrhea. Objective: Vital Signs Temp 36.3 C 08/14/18 08:46 Pulse 67 08/14/18 08:46 Resp 16 08/14/18 08:46 BP 123/70 08/14/18 08:46 Pulse Ox 100 08/14/18 08:46 Intake & Output 08/13/18 08/14/18 08/14/18 18:59 06:59 18:59 Intake Total 1250 0 Balance 1250 0 Weight 180 lb Intake: IV Fluids 1250 Oral 0 Gen:awake, no distress HEENT: no thrush Heart:RRR no murmur Lungs:CTA BL Abd:+BS NTND soft Skin: no rash MSK: R AC fossa incision purulent drainage; diffuse edema and tenderness no crepitus Laboratory Results - last 24 hr 08/13/18 08/13/18 08/13/18 07:17 07:17 08:37 WBC RBC Hgb Hct MCV MCH MCHC RDW Plt Count MPV Neut % (Auto) Lymph % (Auto) [place] % (Auto) Eos % (Auto) Baso % (Auto) Absolute Neuts (auto) Absolute Lymphs (auto) Absolute Monos (auto) Absolute Eos (auto) Absolute Basos (auto) Absolute Nucleated RBC Nucleated RBC % Sodium Potassium Chloride Carbon Dioxide Anion Gap BUN Creatinine Est GFR ( Amer) Est GFR (Non-Af Amer) BUN/Creatinine Ratio Glucose Calcium C-Reactive Protein Hep Bs Antigen Nonreactive Hepatitis C Antibody Low reactive A Hepatitis C Ab Index 1.0 HIV 1&2 Antibody Nonreactive 08/14/18 08/14/18 06:34 06:34 WBC 15.6 H RBC 4.22 Hgb 13.2 L Hct 40 L MCV 94 MCH 31 MCHC 34 RDW 15 Plt Count 161 MPV 9.3 Neut % (Auto) 78.6 Lymph % (Auto) 11.3 [place] % (Auto) 9.7 Eos % (Auto) 0.2 Baso % (Auto) 0.2 Absolute Neuts (auto) 12.2 H Absolute Lymphs (auto) 1.8 Absolute Monos (auto) 1.5 H Absolute Eos (auto) 0.0 Absolute Basos (auto) 0.0 Absolute Nucleated RBC 0.0 Nucleated RBC % 0.0 Sodium 139 D Potassium 4.1 Chloride 110 Carbon Dioxide 25 Anion Gap 4 BUN 7 Creatinine 0.71 Est GFR ( Amer) 151.1 Est GFR (Non-Af Amer) 124.8 BUN/Creatinine Ratio 9.9 Glucose 110 H Calcium 8.4 L C-Reactive Protein 172.57 H Hep Bs Antigen Hepatitis C Antibody Hepatitis C Ab Index HIV 1&2 Antibody Assessment: 1. MRSA Right cutaneous abscess and bicep abscess 2. Acute hepatitis likely due to acute HCV 3. IVDU in brief remission Plan: 1. continue vacncomycin goal trough 15-20, warm soaks 2. HCV VL pending
[2018-08-14 10:42] LABS: Erythrocyte Sed Rate 20 mm/Hr (0-14)
--- NOTE | 2018-08-14 10:51 | PN ---
Subjective Date of Service: 08/14/18 Interval History: Mr. Kitchen reports that he is feeling relatively well today. He continues to have pain in his right arm that is reasonably well controlled on his current pain medication regimen. Objective Active Medications: Acetaminophen (Tylenol Tab*) 650 mg PO Q6H PRN Aspirin (Aspirin Tab*) 325 mg PO DAILY [facility] Clonidine HCl (Catapres Tab*) 0.1 mg PO TID PRN Sodium Chloride (Ns 0.9% 1000 Ml) 1,000 mls @ 100 mls/hr IV PER RATE [facility] Vancomycin HCl 1,250 mg/ (Sodium Chloride) 250 mls @ 166.667 mls/hr IVPB Q8H [facility] Ibuprofen (Motrin Tab*) 600 mg PO Q6H PRN Ketorolac Tromethamine (Toradol Inj*) 30 mg IV PUSH Q6H PRN Pharmacy Consult (Vancomycin Per Pharmacy*) 1 note FOLLOW UP .VANC PER PHARMACY [facility] Pharmacy Profile Note (Vancomycin Trough Check) 1 note FOLLOW UP 0930 ONE Prochlorperazine Edisylate (Compazine Inj*) 5 mg IV Q6H PRN Vital Signs: Temp Pulse Resp BP Pulse Ox 97.3 F 67 16 123/70 100 08/14/18 08:46 08/14/18 08:46 08/14/18 08:46 08/14/18 08:46 08/14/18 08:46 Oxygen Devices in Use Now: None Appearance: Male sitting up in bed in NAD Eyes: No Scleral Icterus Ears/Nose/Mouth/Throat: Mucous Membranes Moist Neck: Trachea Midline Respiratory: Symmetrical Chest Expansion and Respiratory Effort, Clear to Auscultation Cardiovascular: NL Sounds; No Murmurs; No JVD Abdominal: NL Sounds; No Tenderness; No Distention Skin: - - Right abscess open and draining to antecubital fossa, edema throughout right arm, improved Neurological: Alert and Oriented x 3, NL Muscle Strength and Tone Nutrition: Taking PO's Result Diagrams: 08/14/18 06:34 08/14/18 06:34 Additional Lab and Data: Lab Results 08/13/18 Range/Units 07:17 HIV 1&2 Antibody Rapid Nonreactive (Nonreactive) Assess/Plan/Problems-Billing Assessment: Mr. Kitchen is a 37 yo M with no significant PMH who was admitted on 08/13/18 with R arm abscess. - Patient Problems (1) Skin abscess Comment: - MRSA positive - Appreciate ID input. Continue vancomycin - Appreciate ortho input as well. Thus far have been able to adequately drain abscess at bedside. (2) Hepatitis C Comment: - Recommend follow up outpatient with ID for consideration of treatment when appropriate. - LFTS elevated in AM, suspect acute Hep C, repeat LFTs in AM - Viral load pending. (3) DVT prophylaxis Comment: - Early mobility (4) Full code status Status and Disposition: Convert to inpatient. Anticipate discharge to home when medically stable. oil field worker consult placed regarding concern for drug abuse.
[2018-08-14 11:43] LABS: Hepatitis B Surface AB Immune (Immune)
[2018-08-14] MEDS: Aspirin TAB* 325 MG PO SCH (13:02)
--- NOTE | 2018-08-14 14:15 | PN ---
Progress Note - Progress Note Date of Service: 08/14/18 SOAP: Subjective: []Pt seen at bedside, pain of his right arm is improving. He has been soaking his arm and reports purulent discharge. Denies feeling of fever, chills, CP, SOB. Objective: []General: Appears well, NAD RUE: Antecubital fossa with purulent drainage, easily expressed. Erythema is decreased in severity from yesterday, still spans mid-bicep to wrist. forearm and bicep are soft and only mildly tender, though remain edematous. Able to flex and extend digits, wrist without pain. Able to flex and extend elbow without pain in the joint, though expressed pain of "raw skin" at abscess site. 2+ radial pulse, capillary refill less than two seconds distally. Assessment: []Right arm abscess antecubital fossa Plan: []Continue vanco, abx per ID WBAT Soapy warm soaks TID Will trend CBC and CRP, monitor exam to ensure no need for OR I&D. Vital Signs Temp 97.7 F 08/14/18 12:46 Pulse 67 08/14/18 12:46 Resp 18 08/14/18 12:46 BP 117/60 08/14/18 12:46 Pulse Ox 99 08/14/18 12:46 Intake & Output 08/13/18 08/14/18 08/14/18 18:59 06:59 18:59 Intake Total 1250 0 125 Balance 1250 0 125 Weight 180 lb Intake: IV Fluids 1250 Oral 0 125 Laboratory Last Values WBC 15.6 10^3/uL (3.5-10.8) H 08/14/18 06:34 RBC 4.22 10^6 /uL (4.18-5.48) 08/14/18 06:34 Hgb 13.2 g/dL (14.0-18.0) L 08/14/18 06:34 Hct 40 % (42-52) L 08/14/18 06:34 MCV 94 fL (80-94) 08/14/18 06:34 MCH 31 pg (27-31) 08/14/18 06:34 MCHC 34 g/dL (31-36) 08/14/18 06:34 RDW 15 % (10.5-15) 08/14/18 06:34 Plt Count 161 10^3/uL (150-450) 08/14/18 06:34 MPV 9.3 fL (7.4-10.4) 08/14/18 06:34 Neut % (Auto) 78.6 % 08/14/18 06:34 Lymph % (Auto) 11.3 % 08/14/18 06:34 [place] % (Auto) 9.7 % 08/14/18 06:34 Eos % (Auto) 0.2 % 08/14/18 06:34 Baso % (Auto) 0.2 % 08/14/18 06:34 Absolute Neuts (auto) 12.2 10^3/ul (1.5-7.7) H 08/14/18 06:34 Absolute Lymphs (auto) 1.8 10^3/ul (1.0-4.8) 08/14/18 06:34 Absolute Monos (auto) 1.5 10^3/ul (0-0.8) H 08/14/18 06:34 Absolute Eos (auto) 0.0 10^3/ul (0-0.6) 08/14/18 06:34 Absolute Basos (auto) 0.0 10^3/ul (0-0.2) 08/14/18 06:34 Absolute Nucleated RBC 0.0 10^3/ul 08/14/18 06:34 Nucleated RBC % 0.0 08/14/18 06:34 ESR 20 mm/Hr (0-14) H 08/14/18 06:34 Sodium 139 mmol/L (135-145) D 08/14/18 06:34 Potassium 4.1 mmol/L (3.5-5.0) 08/14/18 06:34 Chloride 110 mmol/L (101-111) 08/14/18 06:34 Carbon Dioxide 25 mmol/L (22-32) 08/14/18 06:34 Anion Gap 4 mmol/L (2-11) 08/14/18 06:34 BUN 7 mg/dL (6-24) 08/14/18 06:34 Creatinine 0.71 mg/dL (0.67-1.17) 08/14/18 06:34 Est GFR ( Amer) 151.1 (>60) 08/14/18 06:34 Est GFR (Non-Af Amer) 124.8 (>60) 08/14/18 06:34 BUN/Creatinine Ratio 9.9 (8-20) 08/14/18 06:34 Glucose 110 mg/dL (70-100) H 08/14/18 06:34 Calcium 8.4 mg/dL (8.6-10.3) L 08/14/18 06:34 C-Reactive Protein 172.57 mg/L (<8.01) H 08/14/18 06:34 Hepatitis B Antibody Immune (Immune) 08/13/18 07:17 Hep Bs Antigen Nonreactive (Nonreactive) 08/13/18 07:17 Hep Bs Antibody, Quant > 1000.00 mIU/mL (>12) 08/13/18 07:17 Hepatitis C Antibody Low reactive (Nonreactive) A 08/13/18 08:37 Hepatitis C Ab Index 1.0 Index 08/13/18 08:37 HIV 1&2 Antibody Rapid Nonreactive (Nonreactive) 08/13/18 07:17 HIV 1&2 Antibody Nonreactive (Nonreactive) 08/13/18 07:17
[2018-08-15] MEDS: Vancomycin(*) 1,250 MG in NS 0.9% 250 ML* 250 ML IVPB SCH ×2 (02:56→10:55)
[2018-08-15 06:27] LABS: ABS Eosinophils 0.1 10^3/ul (0-0.6); ABS Lymphocytes 2.2 10^3/ul (1.0-4.8); ABS Monocytes 0.9 10^3/ul (0-0.8); ABS Neutrophils 9.2 10^3/ul (1.5-7.7); Eosinophil % 0.9 %; Hematocrit 41 % (42-52); Hemoglobin 13.6 g/dL (14.0-18.0); Lymphocyte % 17.3 %; Mean Corpuscular HGB Conc 33 g/dL (31-36); Mean Corpuscular Hemoglobin 31 pg (27-31); Mean Corpuscular Volume 94 fL (80-94); Mean Platelet Volume 9.7 fL (7.4-10.4); Platelet Count 203 10^3/uL (150-450); Red Blood Count 4.37 10^6 /uL (4.18-5.48); Red Cell Distribution Width 15 % (10.5-15); White Blood Count 12.5 10^3/uL (3.5-10.8)
[2018-08-15 06:49] LABS: Albumin 3.1 g/dL (3.2-5.2); Albumin/Globulin Ratio 1.2 (1-3); BUN/Creatinine Ratio 10.4 (8-20); C Reactive Protein 97.7 mg/L (<8.01); Calcium 8.6 mg/dL (8.6-10.3); EGFR African American 161.5 (>60); EGFR Non-African American 133.5 (>60); Globulin 2.5 g/dL (2-4); Potassium 3.8 mmol/L (3.5-5.0); Total Bilirubin 0.8 mg/dL (0.2-1.0); Total Protein 5.6 g/dL (6.4-8.9)
[2018-08-15] MEDS: Aspirin TAB* 325 MG PO SCH (07:55)
[2018-08-15] MEDS ORDERED: Vancomycin Trough Check NOTE FOLLOW UP ONE (09:30)
--- NOTE | 2018-08-15 11:01 | PN ---
Progress Note - Progress Note Date of Service: 08/15/18 SOAP: Subjective: [] Pt seen at bedside. He feels well, States his hand is more swollen but forearm and bicep less swollen, less red and less painful. CRP and WBC trending down. Objective: [] General: Appears well, NAD RUE: Antecubital fossa with continued purulent drainage, still easily expressed. Erythema and edema is decreased in severity from yesterday, still spans mid-bicep to wrist. forearm and bicep are soft and only mildly tender. Hand is edematous but able to flex and extend digits, wrist without pain. Able to flex and extend elbow without pain in the joint, though again expressed pain of "raw skin" at abscess site. 2+ radial pulse, capillary refill less than two seconds distally. Assessment: []Right arm abscess antecubital fossa Plan: []Continue vanco, abx per ID WBAT Soapy warm soaks TID Will trend CBC and CRP, monitor exam to ensure no need for OR I&D. Vital Signs Temp 99.0 F 08/15/18 07:35 Pulse 73 08/15/18 07:35 Resp 16 08/15/18 08:00 BP 130/76 08/15/18 07:35 Pulse Ox 100 08/15/18 07:35 Intake & Output 08/14/18 08/15/18 08/15/18 18:59 06:59 18:59 Intake Total 790 980 Balance 790 980 Intake: IVPB 500 ABX - VANCOMYCIN 500 Oral 790 480 Other: Estimated Void Medium # Voids 3 Laboratory Last Values WBC 12.5 10^3/uL (3.5-10.8) H 08/15/18 05:19 RBC 4.37 10^6 /uL (4.18-5.48) 08/15/18 05:19 Hgb 13.6 g/dL (14.0-18.0) L 08/15/18 05:19 Hct 41 % (42-52) L 08/15/18 05:19 MCV 94 fL (80-94) 08/15/18 05:19 MCH 31 pg (27-31) 08/15/18 05:19 MCHC 33 g/dL (31-36) 08/15/18 05:19 RDW 15 % (10.5-15) 08/15/18 05:19 Plt Count 203 10^3/uL (150-450) 08/15/18 05:19 MPV 9.7 fL (7.4-10.4) 08/15/18 05:19 Neut % (Auto) 73.9 % 08/15/18 05:19 Lymph % (Auto) 17.3 % 08/15/18 05:19 [place] % (Auto) 7.5 % 08/15/18 05:19 Eos % (Auto) 0.9 % 08/15/18 05:19 Baso % (Auto) 0.4 % 08/15/18 05:19 Absolute Neuts (auto) 9.2 10^3/ul (1.5-7.7) H 08/15/18 05:19 Absolute Lymphs (auto) 2.2 10^3/ul (1.0-4.8) 08/15/18 05:19 Absolute Monos (auto) 0.9 10^3/ul (0-0.8) H 08/15/18 05:19 Absolute Eos (auto) 0.1 10^3/ul (0-0.6) 08/15/18 05:19 Absolute Basos (auto) 0.0 10^3/ul (0-0.2) 08/15/18 05:19 Absolute Nucleated RBC 0.0 10^3/ul 08/15/18 05:19 Nucleated RBC % 0.0 08/15/18 05:19 ESR 20 mm/Hr (0-14) H 08/14/18 06:34 Sodium 142 mmol/L (135-145) 08/15/18 05:19 Potassium 3.8 mmol/L (3.5-5.0) 08/15/18 05:19 Chloride 113 mmol/L (101-111) H 08/15/18 05:19 Carbon Dioxide 24 mmol/L (22-32) 08/15/18 05:19 Anion Gap 5 mmol/L (2-11) 08/15/18 05:19 BUN 7 mg/dL (6-24) 08/15/18 05:19 Creatinine 0.67 mg/dL (0.67-1.17) 08/15/18 05:19 Est GFR ( Amer) 161.5 (>60) 05/16/19 05:19 Est GFR (Non-Af Amer) 133.5 (>60) 08/15/18 05:19 BUN/Creatinine Ratio 10.4 (8-20) 08/15/18 05:19 Glucose 104 mg/dL (70-100) H 08/15/18 05:19 Calcium 8.6 mg/dL (8.6-10.3) 08/15/18 05:19 Total Bilirubin 0.80 mg/dL (0.2-1.0) D 08/15/18 05:19 AST 24 U/L (13-39) 08/15/18 05:19 ALT 323 U/L (7-52) H 08/15/18 05:19 Alkaline Phosphatase 93 U/L (34-104) 08/15/18 05:19 C-Reactive Protein 97.70 mg/L (<8.01) H 08/15/18 05:19 Total Protein 5.6 g/dL (6.4-8.9) L 08/15/18 05:19 Albumin 3.1 g/dL (3.2-5.2) L 08/15/18 05:19 Globulin 2.5 g/dL (2-4) 08/15/18 05:19 Albumin/Globulin Ratio 1.2 (1-3) 08/15/18 05:19 Vancomycin Trough 8.0 mcg/mL 08/15/18 09:41 Hepatitis B Antibody Immune (Immune) 08/13/18 07:17 Hep Bs Antigen Nonreactive (Nonreactive) 08/13/18 07:17 Hep Bs Antibody, Quant > 1000.00 mIU/mL (>12) 08/13/18 07:17 Hepatitis C Antibody Low reactive (Nonreactive) A 08/13/18 08:37 Hepatitis C Ab Index 1.0 Index 08/13/18 08:37 Hepatitis C RNA Quant 2410 IU/mL (Undetected) A 08/13/18 08:37 HIV 1&2 Antibody Rapid Nonreactive (Nonreactive) 08/13/18 07:17 HIV 1&2 Antibody Nonreactive (Nonreactive) 08/13/18 07:17
[2018-08-15] MEDS ORDERED: LORazepam TAB(*) 1 MG PO SCH (14:00)
--- NOTE | 2018-08-15 16:48 | PN ---
Subjective Date of Service: 08/15/18 Interval History: Patient resting in bed on assessment. Reports Corbin Wrap feels tight therefore would like it removed. Reports right hand feels a little more swollen. Reports pain in right arm is well controlled. Reports occasional fever like symptoms but no recorded fever. Denies cp, palpitations, sob, n/v/d. Objective Active Medications: Acetaminophen (Tylenol Tab*) 650 mg PO Q6H PRN PRN Reason: pain/fever Last Admin: 08/13/18 23:23 Dose: 650 mg Aspirin (Aspirin Tab*) 325 mg PO DAILY [facility] Last Admin: 08/15/18 07:55 Dose: 325 mg Clonidine HCl (Catapres Tab*) 0.1 mg PO TID PRN PRN Reason: CRAVINGS Folic Acid (Folvite Tab*) 1 mg PO DAILY [facility] Sodium Chloride (Ns 0.9% 1000 Ml) 1,000 mls @ 100 mls/hr IV PER RATE [facility] Last Admin: 08/14/18 02:45 Dose: 100 mls/hr Vancomycin HCl 1,000 mg/ (Sodium Chloride) 250 mls @ 166.667 mls/hr IVPB Q6H [facility] Ibuprofen (Motrin Tab*) 600 mg PO Q6H PRN PRN Reason: PAIN Last Admin: 08/15/18 07:55 Dose: 600 mg Ketorolac Tromethamine (Toradol Inj*) 30 mg IV PUSH Q6H PRN PRN Reason: PAIN Last Admin: 08/14/18 13:02 Dose: 30 mg Lorazepam (Ativan Tab(*)) 0 - 6 mg PO .PER [facility] PROTOCOL [facility]; Protocol Last Admin: 08/15/18 13:57 Dose: 2 mg Multivitamins/Minerals (Theragran/Minerals Tab*) 1 tab PO DAILY [facility] Pharmacy Consult (Vancomycin Per Pharmacy*) 1 note FOLLOW UP .VANC PER PHARMACY [facility] Pharmacy Profile Note (Vancomycin Trough Check) 1 note FOLLOW UP 529 ONE Stop: 08/17/18 05:31 Prochlorperazine Edisylate (Compazine Inj*) 5 mg IV Q6H PRN PRN Reason: NAUSEA/VOMITING Thiamine HCl (Vitamin B-1 Tab*) 100 mg PO DAILY [facility] Vital Signs - 8 hr 08/15/18 08/15/18 08/15/18 11:43 13:44 13:57 Temperature 98.2 F 97.9 F Pulse Rate 58 69 Respiratory 20 18 18 Rate Blood Pressure 134/77 139/84 (mmHg) O2 Sat by Pulse 100 100 Oximetry 08/15/18 15:30 Temperature 97.1 F Pulse Rate 71 Respiratory 18 Rate Blood Pressure 128/79 (mmHg) O2 Sat by Pulse 100 Oximetry Oxygen Devices in Use Now: None Appearance: Comfortable, NAD Eyes: No Scleral Icterus Ears/Nose/Mouth/Throat: Clear Oropharnyx, Mucous Membranes Moist Neck: NL Appearance and Movements; NL JVP Respiratory: Symmetrical Chest Expansion and Respiratory Effort, Clear to Auscultation Cardiovascular: NL Sounds; No Murmurs; No JVD, RRR Abdominal: NL Sounds; No Tenderness; No Distention Lymphatic: No Cervical Adenopathy, No Axillary Adenopathy Extremities: - - Redness from wrist to mid bicep on right upper extrem. Arm is supple and patient able to move well. Radial pulse strong and regular. Skin: - - Dime sized wound in ac on right with purulent drainage. Neurological: Alert and Oriented x 3 Nutrition: Taking PO's Result Diagrams: 08/15/18 05:19 08/15/18 05:19 Additional Lab and Data: Laboratory Results - last 24 hr 08/15/18 08/15/18 08/15/18 05:19 05:19 09:41 WBC 12.5 H RBC 4.37 Hgb 13.6 L Hct 41 L MCV 94 MCH 31 MCHC 33 RDW 15 Plt Count 203 MPV 9.7 Neut % (Auto) 73.9 Lymph % (Auto) 17.3 [place] % (Auto) 7.5 Eos % (Auto) 0.9 Baso % (Auto) 0.4 Absolute Neuts (auto) 9.2 H Absolute Lymphs (auto) 2.2 Absolute Monos (auto) 0.9 H Absolute Eos (auto) 0.1 Absolute Basos (auto) 0.0 Absolute Nucleated RBC 0.0 Nucleated RBC % 0.0 Sodium 142 Potassium 3.8 Chloride 113 H Carbon Dioxide 24 Anion Gap 5 BUN 7 Creatinine 0.67 Est GFR ( Amer) 161.5 Est GFR (Non-Af Amer) 133.5 BUN/Creatinine Ratio 10.4 Glucose 104 H Calcium 8.6 Total Bilirubin 0.80 D AST 24 ALT 323 H Alkaline Phosphatase 93 C-Reactive Protein 97.70 H Total Protein 5.6 L Albumin 3.1 L Globulin 2.5 Albumin/Globulin Ratio 1.2 Vancomycin Trough 8.0 Microbiology and Other Data: . Assess/Plan/Problems-Billing Assessment: Mr. Kitchen is a 37 yo M with no significant PMH who was admitted on 08/13/18 with R arm abscess. - Patient Problems (1) Skin abscess Comment: - MRSA positive (see wound culture) - Blood cultures reveal no growth so far - Appreciate ID input. Continue vancomycin - Appreciate ortho input as well. Thus far have been able to adequately drain abscess at bedside. - Per ortho (who evaluated patient yesterday) right arm is less red and suspects hand is swollen from being in dependent position. - Arm is supple and patient is able to move fingers and arm well. No numbness/ tingling. (2) Hepatitis C Comment: - Recommend follow up outpatient with ID for consideration of treatment when appropriate. - ID following while inpatient (3) Anxiety Comment: - Nursing called as patient was becoming anxious and requesting to leave. - Withdrawal? - WAM initiated. (4) Full code status (5) DVT prophylaxis Comment: - Early mobility Status and Disposition: Convert to inpatient. Anticipate discharge to home when medically stable. harvest worker field crop consult placed regarding concern for drug abuse. Attending: Myranda Luu
[2018-08-15] MEDS ORDERED: Nicotine* 4MG (FRUIT FLAVOR) GUM PO PRN (17:34)
[2018-08-15] MEDS: LORazepam TAB(*) 1 MG PO PRN (17:56)
[2018-08-15] MEDS: Vancomycin(*) 1,000 MG in NS 0.9% 250 ML* 250 ML IVPB SCH (17:56)
[2018-08-15] MEDS: Nicotine PATCH 21 MG/24 HR* PATCH TRANSDERM SCH (17:57)
[2018-08-15] MEDS ORDERED: Nicotine Patch Removal NOTE PATCH OFF SCH (21:00)
[2018-08-16] MEDS: Vancomycin(*) 1,000 MG in NS 0.9% 250 ML* 250 ML IVPB SCH ×2 (00:04→05:41)
[2018-08-16] MEDS: NS 0.9% 1000 ML** 1,000 ML IV SCH (00:04)
[2018-08-16] MEDS: Ketorolac INJ* 30 MG/ML 1 ML VIAL IV PUSH PRN (03:29)
[2018-08-16] MEDS: LORazepam TAB(*) 1 MG PO PRN ×2 (03:33→09:00)
[2018-08-16 06:00] LABS: ABS Eosinophils 0.1 10^3/ul (0-0.6); ABS Lymphocytes 2.1 10^3/ul (1.0-4.8); ABS Monocytes 0.6 10^3/ul (0-0.8); ABS Neutrophils 5.2 10^3/ul (1.5-7.7); Eosinophil % 1.6 %; Hematocrit 39 % (42-52); Hemoglobin 13.4 g/dL (14.0-18.0); Lymphocyte % 25.8 %; Mean Corpuscular HGB Conc 34 g/dL (31-36); Mean Corpuscular Hemoglobin 32 pg (27-31); Mean Corpuscular Volume 93 fL (80-94); Mean Platelet Volume 9.4 fL (7.4-10.4); Nucleated Red Blood Cells % 0.1; Platelet Count 235 10^3/uL (150-450); Red Blood Count 4.21 10^6 /uL (4.18-5.48); Red Cell Distribution Width 14 % (10.5-15)
[2018-08-16 06:22] LABS: Albumin/Globulin Ratio 1.1 (1-3); BUN/Creatinine Ratio 7.6 (8-20); C Reactive Protein 36.77 mg/L (<8.01); Calcium 8.5 mg/dL (8.6-10.3); EGFR African American 164.3 (>60); EGFR Non-African American 135.8 (>60); Globulin 2.7 g/dL (2-4); Potassium 3.5 mmol/L (3.5-5.0); Total Protein 5.7 g/dL (6.4-8.9)
[2018-08-16 08:16] VITALS: BP 132/77
[2018-08-16] MEDS ORDERED: Folic Acid TAB* 1 MG PO SCH (09:00)
[2018-08-16] MEDS ORDERED: Multivitamins/Minerals TAB PO SCH (09:00)
[2018-08-16] MEDS ORDERED: Thiamine TAB* 100 MG TAB PO SCH (09:00)
[2018-08-16] MEDS: Aspirin TAB* 325 MG PO SCH (09:00)
[2018-08-16] MEDS: Nicotine PATCH 21 MG/24 HR* PATCH TRANSDERM SCH (09:03)
--- NOTE | 2018-08-16 09:05 | PN ---
Progress Note - Progress Note Date of Service: 08/16/18 SOAP: Subjective: CC: Right arm abscess HPI: Mr. Kitchen is a 37 yo male with PMH significant for tobacco abuse, and IV cocaine abuse; who presented to the emergency room with a right arm abscess and is S/P I+D. He denies any complaints this morning. Denies fever, chills, pain in right arm, nausea, vomiting or diarrhea. He is anxious to get home today. Objective: Vital Signs - 8 hr 08/16/18 08/16/18 08/16/18 01:12 03:25 03:33 Temperature 98.1 F 97.8 F Pulse Rate 65 64 Respiratory 16 24 17 Rate Blood Pressure 144/86 124/64 (mmHg) O2 Sat by Pulse 100 100 Oximetry 08/16/18 08/16/18 05:38 08:07 Temperature 98.2 F Pulse Rate 52 Respiratory 16 18 Rate Blood Pressure 132/77 (mmHg) O2 Sat by Pulse 100 Oximetry Physical Exam: General: NAD, laying in bed Neurological: Alert and Oriented x4 Cardiovascular: Heart rate regular Respiratory: Lung sounds clear Abdominal: Bowel sounds present; ABD soft, non tender and non distended Musculoskeletal: No tenderness with palpation of the right arm, full ROM of the right elbow. Skin: No rash. Right arm with JENNIFER wrap dressing clean, dry and intact Laboratory Results - last 24 hr 08/15/18 08/16/18 08/16/18 09:41 05:28 05:28 WBC 8.0 RBC 4.21 Hgb 13.4 L Hct 39 L MCV 93 MCH 32 H MCHC 34 RDW 14 Plt Count 235 MPV 9.4 Neut % (Auto) 65.1 Lymph % (Auto) 25.8 [place] % (Auto) 7.0 Eos % (Auto) 1.6 Baso % (Auto) 0.5 Absolute Neuts (auto) 5.2 Absolute Lymphs (auto) 2.1 Absolute Monos (auto) 0.6 Absolute Eos (auto) 0.1 Absolute Basos (auto) 0.0 Absolute Nucleated RBC 0.0 Nucleated RBC % 0.1 Sodium 139 Potassium 3.5 Chloride 109 Carbon Dioxide 24 Anion Gap 6 BUN 5 L Creatinine 0.66 L Est GFR ( Amer) 164.3 Est GFR (Non-Af Amer) 135.8 BUN/Creatinine Ratio 7.6 L Glucose 95 Calcium 8.5 L Total Bilirubin 1.00 AST 23 ALT 240 H Alkaline Phosphatase 89 C-Reactive Protein 36.77 H Total Protein 5.7 L Albumin 3.0 L Globulin 2.7 Albumin/Globulin Ratio 1.1 Vancomycin Trough 8.0 Assessment: 1. Right cutaneous and bicep abscess. Wound cultures with MRSA. Blood cultures with no growth, day 3. Afebrile for 48 hours. Leukocytosis has resolved. CRP remains elevated, but is trending down, was 172.57 on admission and now down to 36.77. 2. Acute hepatitis. Secondary to acute Hepatitis C. Viral load is 2410. 3. IVDU Plan: Discontinue IV Vancomycin at discharge. Discharge on Bactrim DS 1 tablet BID for 14 days. He should followup with [facility]. He should have a followup Hepatitis C viral load to see if he is clearing the Hepatitis C on his own. He could make an appointment with ID outpatient to discuss Hepatitis C treatment, if he is interested in treatment.
--- NOTE | 2018-08-16 10:34 | PN ---
Progress Note - Progress Note Date of Service: 08/16/18 SOAP: Subjective: Right elbow abscess and cellulitis. Pt states that he has improved and "needs to leave today". Denies significant pain, f/c. Objective: Vital Signs: Temp Pulse Resp BP Pulse Ox 98.2 F 52 20 132/77 100 08/16/18 08:07 08/16/18 08:07 08/16/18 10:27 08/16/18 08:07 08/16/18 08:07 Gen: A&Ox3, NAD at rest, seems anxious to leave RUE: Small opening to antecubital fossa but no purulent d/c able to be expressed. Still with induration around opening but minimally tender. +f/e at MCP, PIP and DIPs. N/V intact Laboratory Results - last 24 hr 08/15/18 08/16/18 08/16/18 09:41 05:28 05:28 WBC 8.0 RBC 4.21 Hgb 13.4 L Hct 39 L MCV 93 MCH 32 H MCHC 34 RDW 14 Plt Count 235 MPV 9.4 Neut % (Auto) 65.1 Lymph % (Auto) 25.8 [place] % (Auto) 7.0 Eos % (Auto) 1.6 Baso % (Auto) 0.5 Absolute Neuts (auto) 5.2 Absolute Lymphs (auto) 2.1 Absolute Monos (auto) 0.6 Absolute Eos (auto) 0.1 Absolute Basos (auto) 0.0 Absolute Nucleated RBC 0.0 Nucleated RBC % 0.1 Sodium 139 Potassium 3.5 Chloride 109 Carbon Dioxide 24 Anion Gap 6 BUN 5 L Creatinine 0.66 L Est GFR ( Amer) 164.3 Est GFR (Non-Af Amer) 135.8 BUN/Creatinine Ratio 7.6 L Glucose 95 Calcium 8.5 L Total Bilirubin 1.00 AST 23 ALT 240 H Alkaline Phosphatase 89 C-Reactive Protein 36.77 H Total Protein 5.7 L Albumin 3.0 L Globulin 2.7 Albumin/Globulin Ratio 1.1 Vancomycin Trough 8.0 Assessment: Right elbow abscess/cellulitis Plan: D/C today, f/u with Dr. Harman 1-2 weeks Continue warm water soaks twice daily until wound closed Dry dressing daily over wound Encouraged elevation frequently Antibiotics per ID
[2018-08-16] MEDS ORDERED: Sulfamethox/Trimethoprim DS 800/160* TAB PO ONE (10:44)
[2018-08-16] MEDS ORDERED: Sulfamethox/Trimethoprim DS 800/160* TAB ONE (10:56)
--- NOTE | 2018-08-16 12:59 | DS ---
CC: Sandra Phillips NP* DISCHARGE SUMMARY: DATE OF ADMISSION: 08/13/18 DATE OF DISCHARGE: 08/16/18 PRIMARY CARE PROVIDER: Sandra Phillips NP, at [facility]. ATTENDING PHYSICIAN: Dr. Elgin Conrad* (dictated by Salma Foster NP). PRIMARY DIAGNOSES: 1. Skin abscess. 2. Hepatitis C. 3. Substance abuse. CONSULTATION WHILE IN THE HOSPITAL: Dr. Moreno Cantu, Infectious Disease; YOUNG Morataya; YOUNG Mg, from Orthopedics. STUDIES WHILE IN THE HOSPITAL: Right upper extremity CT: Impression: Soft tissue defect in the right anterior aspect of the elbow with underlying small subcutaneous hematoma measuring 0.9 cm, best seen on axial image 146-2. Diffused soft tissue swelling with subcutaneous infiltration in the lower arm and entire forearm particular in the anterior aspect most consistent with cellulitis. Apparent focal fluid collection within distal biceps muscle, which may present hematoma versus abscess. This was obtained 07/14/18. DISCHARGE HOME MEDICATIONS: New home medication: Bactrim 800/160 p.o. b.i.d. x14 days. Continued home medications: The patient is on no home medications. HISTORY OF PRESENT ILLNESS/HOSPITAL COURSE: Mr. Kitchen is a 37-year-old male with a past medical history significant for drug abuse, who presented to the emergency room on 08/13/18 with complaints of right arm pain. Please see history and physical dictated by Jess Mcmullen for complete summary of the events leading up to hospitalization, but in short, the patient had reported injecting cocaine into his right arm and later developed redness, swelling, pain and abscess of the area. While in the emergency room, the patient was noted to meet sepsis criteria as he was tachycardic and had leukocytosis. It should also be mentioned that this is patient's second visit. He previously left AMA. Given his meeting sepsis criteria and right arm abscess, the patient was admitted to the hospital for IV antibiotics and monitoring. During this hospital, the patient was evaluated by Dr. Harman and his PA, Jada Espinosa and Jessenia Julien from Orthopedics. This team manually expressed abscess daily at the bedside and recommended soapy warm soaks t.i.d. The patient did not require surgical intervention. While in this hospital stay, the patient also was consulted by Moreno Cantu from Infectious Disease, who initially recommended vancomycin IV, which the patient received for 4 days. The patient's wound culture from right arm resulted MRSA positive, Staph aureus positive, and was noted to be susceptible to Bactrim. Therefore, the patient will be discharged on p.o. Bactrim x2 weeks. It should also be mentioned that patient's blood cultures have had no growth as of day 3, which is today. It should also be mentioned that the patient requested discharge after demanding to leave and also leaving the unit without permission and being found in the parking lot, smoking a cigarette with IV in place. Today's the patient's arm appears much improved as swollen and redness have greatly improved. The patient had good range of motion. The patient denies pain. The patient is stable for discharge from Medicine, Orthopedic, and Infectious Disease standpoint. The patient is stable for discharge home with close followup. REVIEW OF SYSTEMS: A 14-point review of systems was completed and all were negative. PHYSICAL EXAM: General: Mr. Kitchen is a 37-year-old male, who is sitting in bed. He is dressed in his street clothes. He appears to be in no acute distress. Appears stated age. Vital Signs: Temperature 98.2, HR 52, RR 18, O2 saturation 100% on room air, BP 132/77. HEENT: EOMs intact. Oral mucosa is moist without lesion. Posterior pharynx is clear. Neck: Supple. No lymphadenopathy. Cardiac: S1, S2 present. Regular rate and rhythm. No murmurs , rubs or gallops. Respiratory: Lungs are clear to auscultation. Good aeration. No wheezes, rhonchi, or rubs. Abdomen: Soft, nontender. Bowel sounds normoactive. Extremities: No clubbing or cyanosis. No lower extremity edema. Radial and pedal pulses are 2+ bilaterally. The patient has mild swelling to right upper extremity extending from mid biceps to hand. The swelling has greatly improved since yesterday's assessment. The patient moves all extremities well. Specifically, the patient's right upper extremity, he can move all of his joints without pain including fingers. Radial pulses are good. Musculoskeletal: Patient has good range of motion in upper extremities and lower extremities. Skin: Patient has dime-sized open area to right antecubital with granulating tissue and yellowish drainage. Adjacent to this area, he also has small less than dime-sized open area with granulating tissue and no drainage. The patient has slight redness in the right upper extremity but greatly improved from previously. Neuro: Cranial nerves II through XII are grossly intact. No focal deficits or weakness. LABORATORY DATA: WBC 8.0, hemoglobin 14.4, hematocrit 39, platelets 324. Sodium 135, potassium 3.5, chloride 109, carbon dioxide 24, BUN 5, creatinine 0.66. AST 23, ALT 240. CRP 36.77, which is down from 172.57. DISCHARGE PLAN/FOLLOWUP: 1. Skin abscess: As mentioned above, the patient's abscess is MRSA positive. The patient received 4 days of vancomycin. The patient will be discharged home on Bactrim b.i.d. x14 days. Both Ortho and Infectious Disease agreed with this plan. The patient states understanding of completing course of antibiotics. I setup appointment for the patient to see YOSELIN Flores at [facility] on Sunday, at 11 o'clock to have the area assessed. At which point, Sandra can decide whether he needs to follow up with the Infectious Disease. The patient should also follow up with Orthopedics in 1 to 2 weeks. The patient should continue warm soapy soaks t.i.d. The patient should follow instructions for wound care set forth by YOUNG Mg from Orthopedics, which include warm soaks twice a day until wound closed, dry dressing over wound, elevation frequently. 2. Hepatitis C: The patient was tested hep C while inpatient and was noted to be positive. The patient will follow up with YOSELIN Flores to discuss treatment. Dr. Cantu is also available to discuss treatment if needed. 3. Drug abuse: I discussed drug abuse with patient and he is a poor historian as his reported use is different from what he reported on the day of admission. I discussed options of treatment and patient is not interested at this time but will follow up with Sandra regarding possible treatment in the future. 4. Smoking cessation: The patient is a smoker. The patient received nicotine patch and gum while in the hospital. Discussed smoking cessation. 5. Followup: The patient was stressed the importance of following up with Sandra on 08/20/18 at 11 o'clock to assess for worsening condition. The patient states understanding. 6. Education: The patient was educated on signs and symptoms of new or worsening condition and when to return to the emergency department. The patient states understanding. This is a summarized report of a complex medical history and hospital stay. For further details, please see the entire medical record. TIME SPENT: Approximately 35 minutes was spent on this discharge, greater than half of the time was spent [id number] with the patient discussing discharge plans and instructions. SALMA FOSTER NP [id number]/CPS #: [id number] LAINE
[2018-08-16] MEDS ORDERED: Nicotine Patch Removal NOTE PATCH OFF SCH (21:00)
[2018-08-17] MEDS ORDERED: Vancomycin Trough Check NOTE FOLLOW UP ONE (05:30)
== END 2018-08-16 11:00 | disposition home or self-care (01) | DRG 720 ==
LOC: ED 06:29 → MEDTELE 08:11 → OBSVTOIN 08-14 14:00 → MEDTELE 08-15 17:28 → MED 08-16 01:20
PROVIDERS: ADMIT Internal Medicine; ATTEND Hospitalist
DX: A41.9 Sepsis, unspecified organism (principal); B17.10 Acute hepatitis C without hepatic coma; L02.413 Cutaneous abscess of right upper limb; L03.113 Cellulitis of right upper limb; S50.01XA Contusion of right elbow, initial encounter; X78.8XXA Intentional self-harm by other sharp object, initial encounter; F14.10 Cocaine abuse, uncomplicated; B95.62 Methicillin resistant Staphylococcus aureus infection as the cause of diseases classified elsewhere; F17.210 Nicotine dependence, cigarettes, uncomplicated; F90.9 Attention-deficit hyperactivity disorder, unspecified type; Y92.9 Unspecified place or not applicable
CPT/HCPCS: 36415; 80048; 80053; 80202; 85025; 85652; 86140; 86703; 86706; 86803; 87340; 87522; 99284; A9270-GY; G0378; J1885; J3370

== ENCOUNTER 2018-09-11 11:42 | Emergency (ER) | payer OTHER ==
[2018-09-11 11:49] VITALS: BP 150/93
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
== END 2018-09-11 12:45 | disposition home or self-care (01) ==
LOC: ED 11:42
DX: Z02.83 Encounter for blood-alcohol and blood-drug test (principal)
CPT/HCPCS: 99282

== ENCOUNTER 2019-02-09 05:42 | Emergency (ER) | payer SELFPAY ==
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
[2019-02-09 06:32] VITALS: BP 141/83
== END 2019-02-09 06:30 | disposition home or self-care (01) ==
LOC: EDBD → ED 05:42 → EDUNIT# 05:42 → ED 06:32
DX: F10.929 Alcohol use, unspecified with intoxication, unspecified (principal)
CPT/HCPCS: 99282